=== PATIENT | male | born 1975 | race Caucasian/White ===

== ENCOUNTER 2021-11-05 16:12 | Outpatient (CLI) | payer OTHER | END 2021-11-05 16:24 | disposition home or self-care (01) | LOC: LAB 16:12 | PROVIDERS: ATTEND Obstetrics & Gynecology | DX: Z20.828 Contact with and (suspected) exposure to other viral communicable diseases (principal); Z20.818 Contact with and (suspected) exposure to other bacterial communicable diseases ==

== ENCOUNTER 2025-01-15 10:53 | Emergency (ER) | payer OTHER ==
[~2025-01-15] VITALS: Ht 167.6 cm; Wt 63.5 kg
[2025-01-15] MEDS ORDERED: DIPHENHYDRAMINE HCL 50 MG/ML VIAL 1ML IM ONE (11:30)
[2025-01-15] MEDS ORDERED: MAG HYDROX/ALUMINUM HYD/SIMETH 30 ML BLIST.PACK PO ONE ×2 (11:30→14:03)
[2025-01-15] MEDS ORDERED: METHYLPREDNISOLONE SOD SUCC 40 MG VIAL IM ONE (11:30)
[2025-01-15] MEDS ORDERED: DIPHENHYDRAMINE HCL 50 MG/ML VIAL 1ML ONE (13:51)
[2025-01-15] MEDS ORDERED: MAGNESIUM HYDROXIDE 30 ML BLIST.PACK PO ONE (13:52)
[2025-01-15] MEDS ORDERED: METHYLPREDNISOLONE SOD SUCC 40 MG VIAL ONE (13:52)
[2025-01-15 15:04] VITALS: BP 130/90; O2SAT 98
== END 2025-01-15 15:05 | disposition home or self-care (01) ==
LOC: ER 10:54 → EDSEX 11:07 → ER 11:07
DX: R06.02 Shortness of breath (principal); T78.19XA Other adverse food reactions, not elsewhere classified, initial encounter; Y92.89 Other specified places as the place of occurrence of the external cause; Z91.0120 Allergy to eggs, unspecified; Z91.040 Latex allergy status; Z85.3 Personal history of malignant neoplasm of breast; I10 Essential (primary) hypertension